=== PATIENT | male | born 1965 | race Two or more races ===

== ENCOUNTER 2025-03-09 11:45 | Inpatient (IN) | payer OTHER ==
[~2025-03-09] VITALS: Ht 188 cm; Wt 92.5 kg
[2025-03-09] VITALS (10 sets, daily range): BP systolic 114–134; BP diastolic 72–78; PULSE 82–100; RESP 14–19; TEMP 97.5–98.4; O2SAT 98
--- NOTE | 2025-03-09 12:08 | ECG ---
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
[2025-03-09 13:31] LABS: Hematocrit 20.8 % (41.0-53.0); Mean Corpuscular Hemoglobin 11.5 pg (28.0-32.0); Mean Corpuscular Volume 47.6 fL (80.0-100.0)
[2025-03-09 13:35] LABS: Hemoglobin 5.0 g/dL (13.5-17.5)
--- NOTE | 2025-03-09 13:36 | ED.PDOC ---
History of Present Illness HPI Comments HPI: 59 y/o M, with PMHx of anemia presents to the ED for CC of abnormal labs. Patient states, he had blood work done on 03/02/25 and received a call today 03/09/25 d/t a critical low Hbg level of 5.1. Patient reports, that he has chronic anemia and has dealt with symptoms for over [id number]; endorses last bl ood transfusion to have been [id number] ago. Patient further relays, symptoms of slight dyspnea with execration. Patient denies active bleeding, nausea, vomiting, or melena. No other symptoms or modifying factors are present at this time. Initial Vitals BP: HR: RR: O2 Sat: Temp: Medications: Social History: Denies smoking, ETOH, and drug use. Allergies: NKDA HPI: Poor Historian. Exertional shortness of breath. Denies bleeding from anywhere. His anemia is chronic in nature. Most recent blood transfusion was two months ago. Patient was consented for blood transfusion. Past Medical History: Chronic anemia Past Surgical History: Denies any REVIEW OF SYSTEMS: CONSTITUTIONAL: Denies acute: fever, diaphoresis, chills, HEAD: Denies acute: headache, photophobia Eyes: Denies acute: Double vision, vision loss, eye pain, eye discharge. EARS: Denies acute: tinnitus, hearing loss, ear discharge, ear pain, THROAT: Denies acute: sore throat, swelling, difficulty swallowing , pain with swa llowing, change in voice. NECK: Denies acute: neck pain, neck swelling, stiff neck. HEART: Denies acute : chest pain, palpitations, LUNGS: Denies acute: SOB, wheezing, cough, hemoptysis ABDOMEN: Denies acute: abdominal pain, Nausea, Vomiting, diarrhea, melena , hematemesis, hematochezia SKIN: Denies acute: rash, redness, lesions, itchiness. EXTREMITIES: Denies acute: calf pain, numbness, tingling, weakness, denies pain in extremity. Denies acute: Low back pain. Neuro: Denies acute: focal neurological deficit, motor or sensory focal neurological deficit, tremors, seizure like activity, confusion, dizziness, change in mental status, loss of bowel or bladder function, cauda equina like symptoms. : Denies acute: dysuria, hematuria, flank pain, increase in urinary frequency. PSYCH: Denies acute: hallucination, suicidal ideation, homicidal ideation. PHYSICAL EXAM: General: ----no----acute distress, awake and alert. Head: normocephalic, atraumatic. Neck: supple, trachea is midline, no swelling. Throat: Normal phonation. Eyes:, no erythema, no purulent discharge, no proptosis, no icterus. Heart: regular rate, regular rhythm, no significant murmur appreciated. Lungs: no apparent respiratory distress, Able to speak in full sentences. No wheezing, no rhonchi, no crackles. No stridors Clear to auscultation bilaterally. Abdomen: non tender to palpation, non distended, soft, no guarding, no rebound, + bowel sounds. Neuro: Awake, Alert, oriented to name, self, situation, follows commands GCS=15. Speech is normal. Skin: no petechia, no purpura, no cyanosis, noted-pale, not jaundice. Lower extremities: --no - Pitting edema no deformity, no focal swelling, no calf TTP. Makes eye contact. moves all four extremities. Face: no apparent facial droop. Ambulating in the ED independently. ED COURSE: DISCLAIMER: This medical document was created using an electronic medical record system with voice recognition software and computerized dictation system. Although this document has been carefully reviewed, there might still be some phonetic and typographical errors. Occasional wrong-word or "sound-alike" substitutions may have occurred due to the inherent limitations of voice recognition software. These areas are purely typographical due to imperfections of the software programs and do not reflect any compromise in the patient's medical care. Please read the chart carefully and recognize, using context, where these substitutions have occurred. Chief Complaint: Abnormal LAB's Time Seen by MD: 12:30 Reviewed Notes: Nurses Notes, Medications, Allergies Allergies: Coded Allergies: NO KNOWN ALLERGIES (Unverified , 03/09/25) Home Meds Active Scripts Ferrous Sulfate (FERROUS SULFATE) 325 Mg Tb, 1 TAB PO BID, #60 TAB 3 Refills Prov:KARLI SANDHU MD 03/11/25 Information Source: Patient Mode of Arrival: Ambulatory Severity: Moderate Timing: Days Duration: Since onset Prehospital treatment: None Was a procedure done? Was a procedure done?: No Differential Dx Considerations may include: ANEMIA, occult bleeding, neoplasm, X-Ray, Labs, Meds, VS Vital Signs Date Time Temp Pulse Resp B/P (MAP) Pulse Ox O2 Delivery O2 Flow Rate FiO2 03/09/25 16:30 98.0 97 16 134/77 98.0 03/09/25 16:10 97.9 82 17 120/72 97.9 03/09/25 16:00 84 16 124/70 (88) 100 03/09/25 14:51 89 14 98 Room Air* 0 21 03/09/25 14:30 97.8 89 14 130/84 (99) 98 97.8 03/09/25 13:08 97.8 121 20 119/68 (85) 100 97.8 03/09/25 12:07 114 03/09/25 11:47 98.1 118 18 154/77 97 98.1 Lab Test 03/09/25 16:36 03/09/25 12:58 Range/Units Urine Color Light-yellow Yellow Urine Clarity Clear Clear Urine pH 5.5 5.0-9.0 Urine Specific [place] 1.013 1.001-1.035 Urine Protein Negative Negative Urine Ketones Negative Negative Urine Blood Negative Negative /uL Urine Nitrite Negative Negative Urine Bilirubin Negative Negative Urine Urobilinogen Normal Negative mg/dL Urine Leukocyte Esterase Negative Negative /uL Urine RBC 2 0 - 3 /hpf Urine Microscopic WBC 2 0-3 /HPF Urine Squamous Epithelial Cells Few <5 /hpf Urine Bacteria None seen None Seen /hpf Urine Mucus Few None Seen Urine Glucose 1+ H Normal mg/dL Stool Occult Blood Positive Negative Stool Occult Blood Sample #3 Negative White Blood Count 4.1 L 4.4-10.8 10^3/uL Red Blood Count 4.37 L 4.5-5.90 10^6/uL Hemoglobin 5.0 *L 13.5-17.5 g/dL Hematocrit 20.8 L 41.0-53.0 % Mean Corpuscular Volume 47.6 L 80.0-100.0 fL Mean Corpuscular Hemoglobin 11.5 L 28.0-32.0 pg Mean Corpuscular Hemoglobin Concent 24.2 L 32.0-36.0 g/dL Red Cell Distribution Width 23.4 H 11.8-14.3 % Platelet Count 372 140-450 10^3/uL Mean Platelet Volume 8.5 6.9-10.8 fL Neutrophils (%) (Auto) 37.0-80.0 % Lymphocytes (%) (Auto) 10.0-50.0 % Monocytes (%) (Auto) 0.0-12.0 % Basophils (%) (Auto) 0.0-2.0 % Neutrophils # (Auto) 1.6-8.6 10 ^3/uL Lymphocytes # (Auto) 0.4-5.4 10 ^3/uL Monocytes # (Auto) 0-1.3 10 ^3/uL Differential Total Cells Counted 100.0 100 Neutrophils % (Manual) 74 37.0-80.0 Band Neutrophils % (Manual) 2 Lymphocytes % (Manual) 14 10.0-50.0 Monocytes % (Manual) 7 0-12 Eosinophils % (Manual) 3 0-7 Basophils % (Manual) 0 0.0-2.0 Metamyelocytes % (manual) 0 Myelocytes % (Manual) 0 Promyelocytes % (Manual) 0 Blast Cells % (Manual) 0 Reactive Lymphocytes 0 Platelet Estimate Adequate Hypochromasia (manual) Marked Anisocytosis (manual) Slight Microcytosis Marked Schistocytes Few Sodium Level 137 136-145 mmol/L Potassium Level 4.2 3.5-5.1 mmol/L Chloride Level 104 98-107 mmol/L Carbon Dioxide Level 22 20-31 mmol/L Anion Gap 11 5-15 Blood Urea Nitrogen 12 9-23 mg/dL Creatinine 1.05 0.700-1.30 mg/dL Glomerular Filtration Rate Calc 81 >90 mL/min BUN/Creatinine Ratio 11.4 10.0-20.0 Serum Glucose 300 H 74-106 mg/dL Calcium Level 9.1 8.7-10.4 mg/dL Troponin I High Sensitivity < 3 L </=54 ng/L Time of 1ST Reevaluation: 13:30 Reevaluation 1ST: Unchanged Patient Education/Counseling: Diagnosis, Treatment Family Education/Counseling: No Family Present Comments MDM: patient presented with the above HPI.--symptomatic anemia----workup was initiated. patient was found with the above mentioned diagnosis. the following medications were ordered: please refer to order lists of meds and tests obtained by myself Dr. Nieves. Patient ED course and VS have been stabilized. Patient has been reassessed in the ED and remained in a stable condition. Pertinent incidental findings were discussed with the patient and/or family. Patient/family voices understanding and is agreeable with plan. Patient has been observed in the ED adequate length of time to insure improvement/stability. Escalation of care considered: Consideration of escalation to observation or admission Blood transfusion was initiated in the ED. Patient was ADMITTED to the medicine team for further evaluation and treatment of their presentation. All the reports of any imaging studies that were ordered by myself were reviewed by myself. SEPSIS Sepsis Screen Date sepsis recognized/suspect: Mar 09, 2025 Time Sepsis recognized/suspect: 1147 Recent Procedure: No On Antibiotic Therapy: No Respiratory Rate >20: No Heart Rate >90: Yes Temp<36 C (96.8 F) or >38.3 C: No SBP <90 or MAP <65 mmHG: No New Acute Mental Status Change: No Is the patient on CPAP, BIPAP,: No Physician Orders Electrocardigram (03/09/25 11:56) Obtain Consent For: (03/09/25 15:01) Obtain Consent For Anesthesia (03/09/25 15:01) Vital Signs Date Time Temp Pulse Resp B/P (MAP) Pulse Ox O2 Delivery O2 Flow Rate FiO2 03/09/25 16:30 98.0 97 16 134/77 98.0 03/09/25 16:10 97.9 82 17 120/72 97.9 03/09/25 16:00 84 16 124/70 (88) 100 03/09/25 14:51 89 14 98 Room Air* 0 21 03/09/25 14:30 97.8 89 14 130/84 (99) 98 97.8 03/09/25 13:08 97.8 121 20 119/68 (85) 100 97.8 03/09/25 12:07 114 03/09/25 11:47 98.1 118 18 154/77 97 98.1 Laboratory Tests Test 03/09/25 12:58 White Blood Count 4.1 10^3/uL (4.4-10.8) L Departure 1 Departure Time of Disposition: 14:58 Impression: Primary Impression: Symptomatic anemia Additional Impressions: Hematochezia Hyperglycemia Disposition: 09 ADMITTED INPATIENT Admit to: [facility] Condition: Guarded e-Prescriptions Ferrous Sulfate (FERROUS SULFATE) 325 Mg Tb 1 TAB PO BID, #60 TAB 3 Refills Prov: KARLI SANDHU MD 03/11/25 Discharged With: Self Critical Care Note Critical Care Time?: Yes (55 min-critical care time only) I personally scribed for ASHLEY NIEVES DO ([email or web address]) on 03/09/25 at 13:36. Electronically submitted by Peri Grissom ([email or web address]). I personally scribed for ASHLEY NIEVES DO ([email or web address]) on 03/09/25 at 13:47. Electronically submitted by Peri Grissom ([email or web address]). ASHLEY NIEVES DO Mar 09, 2025 13:36
[2025-03-09 13:37] LABS: Chloride 104 mmol/L (98-107); Potassium 4.2 mmol/L (3.5-5.1); Sodium 137 mmol/L (136-145)
[2025-03-09 13:38] LABS: Anion Gap 11 (5-15); Calcium 9.1 mg/dL (8.7-10.4); Carbon Dioxide 22 mmol/L (20-31)
[2025-03-09 13:43] LABS: BUN/Creatinine Ratio 11.4 (10.0-20.0); Blood Urea Nitrogen 12 mg/dL (9-23)
[2025-03-09 13:44] LABS: Glucose 300 mg/dL (74-106)
[2025-03-09 14:16] LABS: Total Cells Counted 100.0 (100)
[2025-03-09 14:17] LABS: Anisocytosis Slight
[2025-03-09 19:46] LABS: Hematocrit 22.5 % (41.0-53.0); Mean Corpuscular Hemoglobin 12.9 pg (28.0-32.0); Mean Corpuscular Volume 50.8 fL (80.0-100.0); Nucleated Red Blood Cells % 0.8 %
[2025-03-09 19:49] LABS: Hemoglobin 5.7 g/dL (13.5-17.5)
[2025-03-09 19:54] LABS: Albumin 4.3 g/dL (3.2-4.8); Alkaline Phosphatase 61 U/L (46-116); Anion Gap 9 (5-15); BUN/Creatinine Ratio 13.1 (10.0-20.0); Blood Urea Nitrogen 11 mg/dL (9-23); Calcium 9.0 mg/dL (8.7-10.4); Carbon Dioxide 25 mmol/L (20-31); Chloride 106 mmol/L (98-107); Potassium 4.1 mmol/L (3.5-5.1); Sodium 140 mmol/L (136-145); Total Protein 7.0 g/dL (5.7-8.2)
[2025-03-09 19:55] LABS: Bilirubin, Total 0.9 mg/dL (0.2-1.0)
[2025-03-09 19:57] LABS: Total Iron Binding Capacity 402.0 ug/dL (250-425)
[2025-03-09 19:58] LABS: Thyroid Stimulating Hormone 1.86 uIU/mL (0.55-4.78)
[2025-03-09 19:59] LABS: Alanine Aminotransferase 9 U/L (7-40); Glucose 209 mg/dL (74-106); Iron 14.0 ug/dL (65-175)
[2025-03-09 20:00] LABS: INR 1.03 (0.9-1.15); Partial Thromboplastin Time 22.2 SEC (24.5-34.5); Prothrombin Time 10.9 sec (9.3-11.8)
[2025-03-09 20:16] LABS: Wright Stain Ready for Review
--- NOTE | 2025-03-09 20:20 | DVHHPRES ---
History of Present Illness Resident Creating Document: MYRALeelaSHERLYNRYANMORENA RESIDENT History of Present Illness Patient is a 59-year-old male with a medical history of anemia requiring 2-3 transfusions per year came to the hospital with a chief complaint of shortness of breath. On arrival patient was seen to have tachycardia. Patient denied any history of heart failure, no history of COPD or asthma. Patient reported that [place] breath following which she went to the hospital and was found to be severely anemic following which she has had workup for anemia at multiple hospitals but has not received a diagnosis apparently. Patient denied any black stools, symptoms of acidity, reflux, nausea or vomiting. Patient reported he had last colonoscopy about 3 years ago. 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, no heavy alcohol use Family history: No significant family history of anemia, thalassemia, blood cancer Home medications: None Review of Systems Review of Systems Patient seen and examined at the bedside, reports shortness of breath has improved Denies any chest pain, abdominal pain, blood in stool, no dark stools Allergies: Coded Allergies: NO KNOWN ALLERGIES (Unverified , 03/09/25) Medications Current Medications Medications Dose Ordered Sig/Karlie Route Start Time Stop Time Status Last Admin Dose Admin Pantoprazole Sodium 40 mg DAILY@0600 PO 03/10/25 06:00 Exam Vital Signs Vital Signs Date Time Temp Pulse Resp B/P (MAP) Pulse Ox O2 Delivery O2 Flow Rate FiO2 03/09/25 18:37 97.5 85 19 114/76 97.5 03/09/25 18:00 100 03/09/25 14:51 Room Air* 0 21 Exam Gen - conjunctival pallor present, no icterus, no LAD, no edema . Skin - Patients skin is warm and dry. HEENT - normocephalic, atraumatic, moist mucous membranes. Neck - full ROM, no LAD, no JVD Pulmonary - B/L equal breath sounds, no crackles, no wheezing, no stridor. cardiovascular - regular S1,S2 heard with a hyperdynamic circulation, no added sounds, no murmurs heard. GI - soft, nontender abdomen. no hepatospleenomegaly. Bowel sounds normoactive Neurological - Patient is A/O X 3 . Bilateral upper extremity strength 5/5, bilateral lower extremity strength 5/5, no facial droop, normal speech, no tremor, no sensory deficiets. Labs/Xrays Labs Test 03/09/25 19:18 03/09/25 12:58 Range/Units White Blood Count 3.9 L 4.4-10.8 10^3/uL Red Blood Count 4.43 L 4.5-5.90 10^6/uL Hemoglobin 5.7 *L 13.5-17.5 g/dL Hematocrit 22.5 L 41.0-53.0 % Mean Corpuscular Volume 50.8 #L 80.0-100.0 fL Mean Corpuscular Hemoglobin 12.9 L 28.0-32.0 pg Mean Corpuscular Hemoglobin Concent 25.5 L 32.0-36.0 g/dL Red Cell Distribution Width 23.3 H 11.8-14.3 % Platelet Count 345 140-450 10^3/uL Mean Platelet Volume 8.2 6.9-10.8 fL Neutrophils (%) (Auto) 50.0 37.0-80.0 % Lymphocytes (%) (Auto) 38.7 10.0-50.0 % Monocytes (%) (Auto) 8.2 0.0-12.0 % Eosinophils (%) (Auto) 1.9 0.0-7.0 % Basophils (%) (Auto) 1.2 0.0-2.0 % Neutrophils # (Auto) 2.0 1.6-8.6 10 ^3/uL Lymphocytes # (Auto) 1.5 0.4-5.4 10 ^3/uL Monocytes # (Auto) 0.3 0-1.3 10 ^3/uL Eosinophils # (Auto) 0.1 0-0.8 10 ^3/uL Basophils # (Auto) 0 0-0.2 10 ^3/uL Nucleated Red Blood Cells 0.8 % Reticulocyte Count (auto) 2.39 H 0.5-1.5 % Differential Total Cells Counted 100.0 100 Neutrophils % (Manual) 74 37.0-80.0 Band Neutrophils % (Manual) 2 Lymphocytes % (Manual) 14 10.0-50.0 Monocytes % (Manual) 7 0-12 Eosinophils % (Manual) 3 0-7 Basophils % (Manual) 0 0.0-2.0 Metamyelocytes % (manual) 0 Myelocytes % (Manual) 0 Promyelocytes % (Manual) 0 Blast Cells % (Manual) 0 Reactive Lymphocytes 0 Platelet Estimate Adequate Hypochromasia (manual) Marked Anisocytosis (manual) Slight Microcytosis Marked Schistocytes Few Troponin I High Sensitivity < 3 L </=54 ng/L SEPSIS Sepsis Screen Date sepsis recognized/suspect: Mar 09, 2025 Time Sepsis recognized/suspect: 1146 Recent Procedure: No On Antibiotic Therapy: No Respiratory Rate >20: No Heart Rate >90: Yes Temp<36 C (96.8 F) or >38.3 C: No SBP <90 or MAP <65 mmHG: No New Acute Mental Status Change: No Is the patient on CPAP, BIPAP,: No Physician Orders Electrocardigram (03/09/25 11:56) Type And Screen (03/09/25 12:45) Obtain Consent For: (03/09/25 15:01) Obtain Consent For Anesthesia (03/09/25 15:01) Admit (03/09/25 16:36) Oxygen By Nasal Cannula (03/09/25 16:36) Stat Ekg For Chest Pain (03/09/25 16:36) Notify Md Of Changes From Base (03/09/25 16:36) Emergency Dysrhythmia Protocol (03/09/25 16:36) Electrolysis Needle Operator For 24 Hours (03/09/25 16:36) Stool Occult Blood (03/09/25 16:36) Urinalysis (03/09/25 16:36) Pantoprazole Tablet (Protonix Tablet) (03/10/25 06:00) Complete Blood Count (03/09/25 19:00) Comprehensive Metabolic Panel (03/09/25 19:00) Ferritin (03/09/25 19:00) Haptoglobin (03/09/25 19:00) Hemoglobin A1c (03/09/25 19:00) Iron Panel (03/09/25 19:00) Lactate Dehydrogenase (03/09/25 19:00) Reticulocyte Count (03/09/25 19:00) Thyroid Stimulating Hormone (03/09/25 19:00) Nielson Stain Slide (03/09/25 19:00) PTPTT (03/09/25 19:00) Consistent Carb([facility])Diabetes (03/09/25 Dinner) Drug Screen (03/09/25 16:52) Communication Order (03/09/25 18:41) Vital Signs Date Time Temp Pulse Resp B/P (MAP) Pulse Ox O2 Delivery O2 Flow Rate FiO2 03/09/25 18:37 97.5 85 19 114/76 97.5 03/09/25 18:00 87 20 119/68 (85) 100 03/09/25 16:45 89 16 138/75 (96) 100 03/09/25 16:30 98.0 97 16 134/77 98.0 03/09/25 16:10 97.9 82 17 120/72 97.9 03/09/25 16:00 84 16 124/70 (88) 100 03/09/25 14:51 89 14 98 Room Air* 0 21 03/09/25 14:30 97.8 89 14 130/84 (99) 98 97.8 03/09/25 13:08 97.8 121 20 119/68 (85) 100 97.8 03/09/25 12:07 114 Laboratory Tests Test 03/09/25 12:58 03/09/25 19:18 White Blood Count 4.1 10^3/uL (4.4-10.8) L 3.9 10^3/uL (4.4-10.8) L Assessment/Plan Assessment/Plan Severe microcytic hypochromic anemia Shortness of breaths likely due to above, improved - workup for microcytic hypochromic anemia including retic count, iron panel, ferritin, lactate dehydrogenase, have 2 globulin ordered - stool occult blood sample sent - 2 units of PRBCs transfused Uncontrolled hyperglycemia - HbA1c ordered - consistent carbohydrate diet PUD prophylaxis: Protonix Goals of care discussed with the patient for over 31 minutes. Full code Plan discussed with Dr. Mendez Plan discussed with: Patient My Orders Orders - LINDA PHAN RESIDENT Procedure Category Date Status Time Admit ADMIT 03/09/25 Transmitted 16:36 Oxygen By Nasal RT 03/09/25 Transmitted Cannula 16:36 Stat Ekg For Chest RUSS 03/09/25 In Process Pain 16:36 Notify Of Changes RUSS 03/09/25 In Process From Base 16:36 Emergency Dysrhythmia RUSS 03/09/25 In Process Protocol 16:36 Electrolysis Needle Operator For RUSS 03/09/25 In Process 24 Hours 16:36 Stool Occult Blood LAB 03/09/25 Logged 16:36 Urinalysis LAB 03/09/25 Logged 16:36 Pantoprazole Tablet PHA 03/10/25 In Process (Protonix Tablet) 06:00 Complete Blood Count LAB 03/09/25 In Process 19:00 Comprehensive LAB 03/09/25 In Process Metabolic Panel 19:00 Ferritin LAB 03/09/25 In Process 19:00 Haptoglobin LAB 03/09/25 In Process 19:00 Hemoglobin A1c LAB 03/09/25 In Process 19:00 Iron Panel LAB 03/09/25 In Process 19:00 Lactate Dehydrogenase LAB 03/09/25 In Process 19:00 Reticulocyte Count LAB 03/09/25 In Process 19:00 Thyroid Stimulating LAB 03/09/25 In Process Hormone 19:00 Nielson Stain Slide LAB 03/09/25 In Process 19:00 PTPTT LAB 03/09/25 In Process 19:00 Consistent DIET 03/09/25 Transmitted Carb([facility])Diabetes Dinner Drug Screen LAB 03/09/25 Logged 16:52 Communication Order ORDERS 03/09/25 Transmitted 18:41 Date of Service: Mar 09, 2025 Billing Provider: MELANIE MENDEZ MD Common Visit Codes: [id number] INP/OBS CARE (HIGH) Secondary Visit Codes: [id number] CARE PLAN 30 MINUTES LINDA PHAN RESIDENT Mar 09, 2025 20:20
[2025-03-10] VITALS (11 sets, daily range): BP systolic 96–116; BP diastolic 61–81; PULSE 65–82; RESP 17–20; TEMP 97.8–98.8; O2SAT 96–100
[2025-03-10] MEDS: PANTOPRAZOLE 40 MG TAB PO SCH (05:26)
[2025-03-10 07:31] LABS: Hematocrit 22.8 % (41.0-53.0); Mean Corpuscular Hemoglobin 14.9 pg (28.0-32.0); Mean Corpuscular Volume 54.3 fL (80.0-100.0)
[2025-03-10 07:35] LABS: Anion Gap 9 (5-15); Carbon Dioxide 25 mmol/L (20-31); Chloride 105 mmol/L (98-107); Potassium 3.7 mmol/L (3.5-5.1); Sodium 139 mmol/L (136-145)
[2025-03-10 07:41] LABS: BUN/Creatinine Ratio 13.3 (10.0-20.0); Blood Urea Nitrogen 11 mg/dL (9-23)
[2025-03-10 07:46] LABS: Calcium 8.3 mg/dL (8.7-10.4); Glucose 220 mg/dL (74-106)
[2025-03-10 07:49] LABS: Hemoglobin 6.2 g/dL (13.5-17.5)
[2025-03-10 08:10] LABS: Total Cells Counted 100.0 (100)
[2025-03-10 08:11] LABS: Anisocytosis Marked
[2025-03-10 08:12] LABS: Tear Drop Cells FEW
[2025-03-10 08:13] LABS: Ovalocytes MODERATE
[2025-03-10] MEDS: PANTOPRAZOLE 40 MG/10 ML VIAL INJ IV SCH (10:23)
[2025-03-10] MEDS: SUCRALFATE 1 GM/10 ML ORAL SUSP PO SCH (11:16)
--- NOTE | 2025-03-10 14:57 | DVHINCON2 ---
GI Consult Consult Note GI consult note Date of Consultation: 03/10/2025 Chief Complaint: Severe anemia, FOBT positive Referring Physician: Dr Mae H&P: 59-year-old male admitted with complains of shortness of breath and tachycardia. Patient has history of anemia diagnosed 10 years ago requiring blood transfusions multiple times. Patient denies any abdominal pain no nausea vomiting regular BM. Denies melena or red blood in stool. Patient is status post EGD and colonoscopy three years ago within normal limits per patient. 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90 10^6/uL Hemoglobin 6.2 *L 13.5-17.5 g/dL Hematocrit 22.8 L 41.0-53.0 % Mean Corpuscular Volume 54.3 #L 80.0-100.0 fL Mean Corpuscular Hemoglobin 14.9 L 28.0-32.0 pg Mean Corpuscular Hemoglobin Concent 27.4 L 32.0-36.0 g/dL Red Cell Distribution Width 31.0 H 11.8-14.3 % Platelet Count 310 140-450 10^3/uL Mean Platelet Volume 8.3 6.9-10.8 fL Neutrophils (%) (Auto) 37.0-80.0 % Lymphocytes (%) (Auto) 10.0-50.0 % Monocytes (%) (Auto) 0.0-12.0 % Basophils (%) (Auto) 0.0-2.0 % Neutrophils # (Auto) 1.6-8.6 10 ^3/uL Lymphocytes # (Auto) 0.4-5.4 10 ^3/uL Monocytes # (Auto) 0-1.3 10 ^3/uL Differential Total Cells Counted 100.0 100 Neutrophils % (Manual) 66 37.0-80.0 Band Neutrophils % (Manual) 2 Lymphocytes % (Manual) 22 10.0-50.0 Monocytes % (Manual) 5 0-12 Eosinophils % (Manual) 4 0-7 Basophils % (Manual) 0 0.0-2.0 Metamyelocytes % (manual) 1 Myelocytes % (Manual) 0 Promyelocytes % (Manual) 0 Blast Cells % (Manual) 0 Reactive Lymphocytes 0 Platelet Estimate Adequate Large Platelets Few Hypochromasia (manual) Marked Anisocytosis (manual) Marked Microcytosis Marked Tear Drop Cells Few Ovalocytes Moderate Schistocytes Few Sodium Level 139 136-145 mmol/L Potassium Level 3.7 3.5-5.1 mmol/L Chloride Level 105 98-107 mmol/L Carbon Dioxide Level 25 20-31 mmol/L Anion Gap 9 5-15 Blood Urea Nitrogen 11 9-23 mg/dL Creatinine 0.83 0.700-1.30 mg/dL Glomerular Filtration Rate Calc 100 >90 mL/min BUN/Creatinine Ratio 13.3 10.0-20.0 Serum Glucose 220 H 74-106 mg/dL Calcium Level 8.3 L 8.7-10.4 mg/dL Eosinophils (%) (Auto) 1.9 0.0-7.0 % Eosinophils # (Auto) 0.1 0-0.8 10 ^3/uL Basophils # (Auto) 0 0-0.2 10 ^3/uL Nucleated Red Blood Cells 0.8 % Reticulocyte Count (auto) 2.39 H 0.5-1.5 % Prothrombin Time 10.9 9.3-11.8 sec Prothrombin Time INR 1.03 0.9-1.15 Activated Partial Thromboplast Time 22.2 L 24.5-34.5 SEC Hemoglobin A1c 4.7 <5.7 % A1C Iron Level 14 L 65-175 ug/dL Total Iron Binding Capacity 402 250-425 ug/dL Percent Iron Saturation 3.5 L 20-55 % Ferritin 2.2 L 22-322 ng/mL Total Bilirubin 0.9 0.2-1.0 mg/dL Aspartate Amino Transferase (AST) 9 L 13-40 U/L Alanine Aminotransferase (ALT) 9 7-40 U/L Alkaline Phosphatase 61 46-116 U/L Lactate Dehydrogenase 121 120-246 U/L Total Protein 7.0 5.7-8.2 g/dL Albumin 4.3 3.2-4.8 g/dL Thyroid Stimulating Hormone (TSH) 1.86 0.55-4.78 uIU/mL Stool Occult Blood Positive Negative Stool Occult Blood Sample #3 Negative Troponin I High Sensitivity < 3 L </=54 ng/L Imaging: Assessment: Severe microcytic anemia Possible GI bleed Plan: Discussed with Dr. Jacobs CT abdomen pelvis Monitor labs Protonix Discussed possible EGD or colonoscopy due to positive stool occult blood, at this time patient is refusing to having the procedures done but we will do the transfusions Outpatient GI follow-up recommended in 4-6 weeks Thank you for this consult Date of Service: Mar 10, 2025 Billing Provider: MARIA EUGENIA HART Common Visit Codes: CONSULT ONLY Consultation Codes: [id number] CONSULT <60MIN MARIA EUGENIA HART Mar 10, 2025 14:57
[2025-03-10] MEDS: IRON SUCROSE COMPLEX 110 ML IV SCH (16:53)
--- NOTE | 2025-03-10 16:54 | DVH ---
CLINICAL HISTORY: anemia TECHNIQUE: CT of the abdomen and pelvis was performed without intravenous contrast. This exam was per formed according to our departmental dose optimization program. Up-to-date CT equipment and radiation dose reduction techniques are utilized as appropriate. 16.46 CTDI: 16.46 DLP: 875.31 WID: COMPARISON: None FINDINGS: Lower Thorax: Linear bibasilar scarring or atelectasis. Normal-sized heart without pericardial effusi on. There is hypodensity of the blood pool relative to the myocardium indicative of anemia. There is a moderate hiatal hernia. Liver and Biliary system: Normal-sized liver. No definite hepatic lesion. The gallbladder is normal caliber. There is no biliary ductal dilatation. Spleen: Mild splenomegaly. Adrenal Glands and Kidneys: Normal adrenal glands. No hydronephrosis or nephrolithiasis. There is a s mall hemorrhagic cyst in the lateral interpolar right kidney. Pancreas and Retroperitoneum: Grossly unremarkable pancreas. No pathologically enlarged retroperitone al lymph nodes. Aorta and Major Vessels: Aortoiliac vessels are normal in caliber containing [id number] calcifi ed atherosclerotic plaque. Bowel, Mesentery and Peritoneal space: Normal caliber small and large bowel. Normal appendix. No free air or fluid collection. Pelvis: No pelvic lymphadenopathy. Urinary bladder is minimally distended. Apparent mild bladder wall thickening. The prostate contains a dystrophic calcification. Seminal vesicles are grossly unremarka ble. There is soft tissue plug at the origin of the left inguinal canal presumably from prior repair. Small fat containing right inguinal hernia. Soft tissue scarring in the left inguinal region. Abdominal wall and Osseous Structures: Multilevel lower thoracic and lumbar spondylosis. There is ma rked degenerative disc space narrowing at L4-L5 and L5-S1. There is grade 1 retrolisthesis at L5-S1. No destructive osseous lesion. IMPRESSION: 1. Hypodensity of the blood pool relative to the myocardium indicative of anemia. Correlate with CBC. 2. Moderate hiatal hernia. 3. Mild splenomegaly. 4. Apparent mild bladder wall thickening although could be due to underdistention. Correlate with ur inalysis if there is clinical concern for cystitis.
[2025-03-11] VITALS (8 sets, daily range): BP systolic 93–116; BP diastolic 56–76; PULSE 67–116; RESP 17–20; TEMP 97.8–98.5; O2SAT 91–96
[2025-03-11 05:52] LABS: Hemoglobin 7.8 g/dL (13.5-17.5); Mean Corpuscular Hemoglobin 16.1 pg (28.0-32.0)
[2025-03-11 05:55] LABS: Hematocrit 27.8 % (41.0-53.0); Mean Corpuscular Volume 57.4 fL (80.0-100.0)
[2025-03-11 06:57] LABS: Total Cells Counted 100.0 (100)
[2025-03-11 06:58] LABS: Anisocytosis Marked
[2025-03-11 06:59] LABS: Ovalocytes MODERATE; Tear Drop Cells FEW
--- NOTE | 2025-03-11 15:03 | DVHPN2 ---
Subjective No changes Changes from previous H/P or p: No Changes Objective Vitals Vital Signs Date Time Temp Pulse Resp B/P (MAP) Pulse Ox O2 Delivery O2 Flow Rate FiO2 03/11/25 13:00 98.1 67 18 98/56 (70) 96 98.1 03/11/25 08:00 Room Air* 0 21 Intake/Output Intake and Output 03/11/25 07:00 Intake Total 1120 ml Output Total 825 ml Balance 295 ml Intake Oral 660 ml IV Total 110 ml Blood Product 300 ml Other 50 ml Output Urine Total 825 ml # Bowel Movements 1 Exam General: NAD, AAOX3 Chest: lung dumas clear to auscultation Heart: RRR, no murmur Abdomen: non-distended, no tenderness to palpation, +BS Medications Current Medications Medications Dose Ordered Sig/Karlie Route Start Time Stop Time Status Last Admin Dose Admin Pantoprazole Sodium 40 mg DAILY@0600 PO 03/10/25 06:00 03/10/25 05:26 40 MG Iron Sucrose 110 ml @ 110 mls/hr DAILY@1200 IV 03/10/25 12:00 03/14/25 12:59 03/11/25 12:09 110 MLS/HR Pantoprazole Sodium 40 mg DAILY IV 03/10/25 10:00 03/11/25 09:34 40 MG Sucralfate 1 gm TID@0600,1130,2200 PO 03/10/25 11:30 03/10/25 11:16 1 GM Laboratory Results Laboratory Tests 03/10/25 06:53 03/11/25 05:32 Labs and/or images reviewed: Labs reviewed by me, Image(s) reviewed by me Assessment/Plan Assessment/Plan Severe microcytic anemia Possible GI bleed Hiatal hernia Plan: Discussed with Dr. Jacobs Monitor labs Supportive care recommended Outpatient GI follow-up Plan discussed with: Patient Date of Service: Mar 11, 2025 Billing Provider: MARIA EUGENIA HART Common Visit Codes: [id number] INP/OBS CARE(HIGH) MARIA EUGENIA HART Mar 11, 2025 15:03
[2025-03-11 17:11] LABS: Amphetamine Screen, Urine Neg (NEGATIVE); Barbiturate Scree,Urine Neg (NEGATIVE); Benzodiazephine Screen, Urine Neg (NEGATIVE); Cannabinoid Screen, Urine Neg (NEGATIVE); Cocaine Screen, Urine Neg (NEGATIVE); Opiate Scree,Urine Neg (NEGATIVE); Phencyclidine Screen, Urine Neg (NEGATIVE)
[2025-03-11 17:14] LABS: Urine Protein, UAD Negative (Negative)
--- NOTE | 2025-03-11 22:03 | DVHDS2 ---
New Physician D'charge PN Admitting Diagnosis Admitting Diagnosis anemia Discharge Diagnosis anemia s/p PRBC Operations or Procedures none Reason(s) For Hospitalization Surgery Hospital Course 59 M who comes to ER for SOB. He was noted to have a hgb of 5.0. He states he has had blood transfusions in the past and has been recommended to be on iron supplements and has been noncompliant. He was transfused 3 units PRBC and now Hgb >7. His stool occult blood was positive. He was seen by GI here and refused EGD and colo and states he has has both done 3 years ago and were apparently normal as per patient. His chem panel was nml. CT abdomen showed no acute findings. GI recommends outpt follow up in 4 weeks. Patient will be dc home with outpt follow up via [employer]. He will have an outpt CBC in 3-5 days to recheck his hgb and will prescribe PO iron tablets on DC along with hematology follow up outpt. Treatment Plan Discharge Condition of Discharge Good Disposition Home Discharge Instructions Diet: Cardiac 2g Na,low cholest Activity: No Restrictions, As Tolerated Medications: see med sheet Follow Up Care Follow Up/Referral: pcp GI Discharge Statement: "Patient was advised to return to the ER or call 911 if any headaches, dizziness, shortness of breath, chest pain, abdominal pain, bleeding, fevers, or worsening of medical condition. Patient was counseled about treatment plan, medications, possible side effects, patientverbalized understanding. All questions were answered to the best of my ability. This discharge took greater then 30 minutes in planning, reviewing documentation, counseling the patient, and discussing with other team members." KARLI SANDHU MD Mar 11, 2025 22:03
[2025-03-11] MEDS ORDERED: FER325T PO (22:05)
[2025-03-12 01:00] VITALS: BP 101/62; PULSE 99; RESP 17; TEMP 96.6; O2SAT 91
== END 2025-03-12 07:37 | disposition left against medical advice (07) | DRG 663 ==
LOC: ER 11:45 → OVERFLOW 16:36 → TELE-WESTW 21:47
PROVIDERS: ADMIT Internal Medicine Geriatric Medicine; ATTEND Internal Medicine
PROC: 30233N1 Transfusion of Nonautologous Red Blood Cells into Peripheral Vein, Percutaneous Approach (ICD-10-PCS; principal; 2025-03-09)
DX: D50.9 Iron deficiency anemia, unspecified (principal); K92.2 Gastrointestinal hemorrhage, unspecified; F15.90 Other stimulant use, unspecified, uncomplicated; K92.1 Melena; K44.9 Diaphragmatic hernia without obstruction or gangrene; R73.9 Hyperglycemia, unspecified; Z53.29 Procedure and treatment not carried out because of patient's decision for other reasons; Z87.891 Personal history of nicotine dependence
CPT/HCPCS: 36415; 74176; 80048; 80053; 80307; 81001; 82270; 82728; 83010; 83036; 83540; 83550; 83615; 84443; 84484; 85007; 85025; 85027; 85045; 85610; 85730; 86850; 86900; 86901; 86920; 93005; G0378; J1756; J2470